=== PATIENT | female | born 1945 | race Caucasian/White ===

== ENCOUNTER → 2019-03-24 12:45 | Outpatient (CLI) | payer MEDICARE, SELFPAY ==
--- NOTE | 2019-03-24 12:51 | XR_ITS ---
PROCEDURE: XR SHOULDER RT MIN 2V CLINICAL INDICATION: proximal humerus fracture fu Follow-up proximal humeral fracture COMPARISON: XR SHOULDER RT MIN 2V from 03/02/2019 FINDINGS: There are severe osteoarthritic changes of the glenohumeral joint. There is a healing humeral neck fracture. Fracture line is somewhat less apparent with overlying callus formation. There is severe subacromial stenosis consistent with rotator cuff tear and severe osteoarthritic change of the glenohumeral joint with dysplastic changes of the humeral head. IMPRESSION: Severe osteoarthritis of the glenohumeral joint with healing humeral neck fracture and severe subacromial stenosis Dictated by: Migue Aguilar MD 03/24/2019 17:55 Electronically signed by Migue Aguilar MD in [place] 03/24/2019 17:55
== END ==
PROVIDERS: PCP Pediatrics; Visit Provider Orthopaedic Surgery
DX: S42.201A Unspecified fracture of upper end of right humerus, initial encounter for closed fracture (principal)
CPT/HCPCS: 73030

== ENCOUNTER → 2019-04-14 12:55 | Outpatient (CLI) | payer MEDICARE, SELFPAY ==
--- NOTE | 2019-04-14 13:01 | XR_ITS ---
PROCEDURE: XR SHOULDER RT MIN 2V CLINICAL INDICATION: right proximal humerus fracture follow up Follow-up fracture COMPARISON: XR SHOULDER RT MIN 2V from 03/02/2019 XR SHOULDER RT MIN 2V from 03/24/2019 FINDINGS: Severe osteoarthritic change of the glenohumeral joint with severe subacromial stenosis with healing humeral neck fracture with mild impaction of the fracture fragments. The greater tuberosity fracture appears to be healing. Dysplastic changes are present involving the humeral head with ridging of the humeral neck medially and at the glenoid area. IMPRESSION: Healing humeral neck fracture with severe osteoarthritic change Dictated by: Migue Aguilar MD 04/14/2019 16:09 Electronically signed by Migue Aguilar MD in [place] 04/14/2019 16:09
== END ==
PROVIDERS: PCP Pediatrics; Visit Provider Orthopaedic Surgery
DX: S42.201A Unspecified fracture of upper end of right humerus, initial encounter for closed fracture (principal)
CPT/HCPCS: 73030

== ENCOUNTER → 2019-06-15 13:17 | Outpatient (CLI) | payer MEDICARE, SELFPAY ==
--- NOTE | 2019-06-15 13:24 | XR_ITS ---
PROCEDURE: XR SHOULDER RT MIN 2V CLINICAL INDICATION: right proximal humerus fracture fu Follow-up fracture COMPARISON: XR SHOULDER RT MIN 2V from 03/02/2019 XR SHOULDER RT MIN 2V from 03/24/2019 XR SHOULDER RT MIN 2V from 04/14/2019 FINDINGS: Displaced humeral neck fracture once again noted. There is anterior displacement of the distal fracture fragment. The fracture line appears somewhat less apparent suggesting healing. There are severe osteoarthritic changes of the glenohumeral joint with severe subacromial stenosis. IMPRESSION: Healing displaced humeral neck fracture with severe osteoarthritic change Dictated by: Migue Aguilar MD 06/15/2019 14:53 Electronically signed by Migue Aguilar MD in [place] 06/15/2019 14:53
== END ==
PROVIDERS: PCP Pediatrics; Visit Provider Orthopaedic Surgery
DX: S42.201A Unspecified fracture of upper end of right humerus, initial encounter for closed fracture (principal)
CPT/HCPCS: 73030

== ENCOUNTER → 2021-03-22 13:20 | Outpatient (CLI) | payer MEDICARE, SELFPAY | PROVIDERS: Visit Provider Internal Medicine Gastroenterology | DX: Z20.822 Contact with and (suspected) exposure to COVID-19 (principal) | CPT/HCPCS: C9803; U0003; U0005 ==

== ENCOUNTER → 2022-04-24 12:30 | Outpatient (CLI) | payer MEDICARE, SELFPAY ==
--- NOTE | 2022-04-24 13:05 | ECG_ITS ---
APPROVED REPORT Exam: Resting ECG HR:77 bpm ECG Measurements Heart Rate 77 AXES NJ 130 P 36 QRSd 97 QRS -31 QT 396 T 51 QTc 428 Conclusion SINUS RHYTHM LEFT AXIS DEVIATION [QRS AXIS < -30] SEPTAL MYOCARDIAL INFARCTION , PROBABLY OLD [40+ ms Q WAVE IN V1/V2] ABNORMAL ECG UNCONFIRMED REPORT Electronically signed by : Rohit Gruber MD 04/25/2022 20:20:59
[2022-04-24 13:29] LABS: Basophils # 0.1 K/mm3 (0-0.2); Basophils % 0.8 % (0.1-2.0); Eosinophils # 0.2 K/mm3 (0.0-0.4); Eosinophils % 1.5 % (0.1-12.0); Hematocrit 36.1 % (37.0-47.0); Hemoglobin 11.6 g/dL (12.2-16.2); Lymphocytes # 3.3 K/mm3 (0.7-4.5); Lymphocytes % 30.4 % (10-50); Mean Corpuscular Hemoglobin 30.5 pg (27.0-31.2); Mean Corpuscular Volume 95.1 fl (81-99); Mean Platelet Volume 8.2 fl (7.4-10.4); Monocytes # 0.6 K/mm3 (0.1-1.0); Monocytes % 5.8 % (1.7-9.3); Neutrophils # 6.6 K/mm3 (1.8-7.8); Neutrophils % 61.5 % (37.0-80.0); Platelet Count 484 K/mm3 (142-424); Red Blood Count 3.79 M/mm3 (4.20-5.40); Red Cell Distribution Width 14.4 % (11.5-17.5); White Blood Count 10.7 K/mm3 (4.8-10.8)
== END ==
PROVIDERS: PCP Pediatrics
DX: Z01.818 Encounter for other preprocedural examination (principal); T84.84XA Pain due to internal orthopedic prosthetic devices, implants and grafts, initial encounter
CPT/HCPCS: 36415; 85025; 93005

== ENCOUNTER 2022-09-10 06:53 | Day surgery (SDC) | payer MEDICARE, SELFPAY ==
[2022-09-04 16:28] VITALS: BMI 23.6
[2022-09-10] VITALS (7 sets, daily range): BP systolic 119–139; BP diastolic 56–73; PULSE 60–76; RESP 16–18; TEMP 36.3–36.4; O2SAT 97–100
== END 2022-09-10 08:56 | disposition home or self-care (01) ==
PROVIDERS: PCP Pediatrics; Visit Provider Ophthalmology
DX: H25.813 Combined forms of age-related cataract, bilateral (principal)
CPT/HCPCS: 66984; V2632

== ENCOUNTER 2022-09-24 08:22 | Day surgery (SDC) | payer MEDICARE, SELFPAY ==
[2022-09-24] VITALS (7 sets, daily range): BP systolic 102–132; BP diastolic 53–63; PULSE 62–69; RESP 16–18; TEMP 36.2–36.4; O2SAT 94–100; BMI 22.1
== END 2022-09-24 10:21 | disposition home or self-care (01) ==
PROVIDERS: PCP Pediatrics; Visit Provider Ophthalmology
DX: H26.9 Unspecified cataract (principal)
CPT/HCPCS: 66984; V2632

== ENCOUNTER 2022-11-03 00:25 | Emergency (ER) | payer MEDICARE, SELFPAY ==
[2022-11-03 00:16] VITALS: BMI 32.3
--- NOTE | 2022-11-03 00:16 | CT_ITS ---
PROCEDURE INFORMATION: Exam: CT Head Without Contrast Exam date and time: 11/03/2022 12:24 AM Age: 77 years old Clinical indication: Stroke-like symptoms; Speech disturbance; Left facial droop; Lt upper extremity and lt lower extremity weakness; Additional info: Stroke rule out TECHNIQUE: Imaging protocol: Computed tomography of the head without contrast. Radiation optimization: All CT scans at this facility use at least one of these dose optimization techniques: automated exposure control; mA and/or kV adjustment per patient size (includes targeted exams where dose is matched to clinical indication); or iterative reconstruction. Other technique: STROKE PROTOCOL was implemented. REPORTING DATA: Count of CT and Cardiac NM exams in prior 12 months: This patient has received 0 known CTs and 0 known cardiac nuclear medicine studies in the 12 months prior to the current study. COMPARISON: No relevant prior studies available. FINDINGS: Brain: Loss of alcocer-white matter differentiation involving the left occipital lobe. The remaining alcocer-white matter junction is intact. There is no area of hemorrhage. There is no focal mass. Cerebral ventricles: No ventriculomegaly. Paranasal sinuses: Visualized sinuses are unremarkable. No fluid levels. Mastoid air cells: Visualized mastoid air cells are well aerated. Bones/joints: Unremarkable. No acute fracture. Soft tissues: Unremarkable. IMPRESSION: 1. Loss of alcocer-white matter differentiation involving the left occipital lobe. 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 2. The remainder of the examination is unremarkable. There is no other areas suspicious for an acute infarction. There is no hemorrhage or mass. ASSESSMENT: ASPECTS ([place] Stroke Program Early CT Score) is ten.
--- NOTE | 2022-11-03 00:24 | PC.NURSE ---
pt in CT
--- NOTE | 2022-11-03 00:26 | PC.NURSE ---
FSBS 98 MG/DL.
--- NOTE | 2022-11-03 00:36 | PC.NURSE ---
CONSTANCE speaking with DR. Palacios about CT results
[2022-11-03 00:42] VITALS: BP 169/77; PULSE 75; RESP 25; TEMP 36.8; O2SAT 96; BMI 19.9
--- NOTE | 2022-11-03 00:43 | PC.NURSE ---
speaking with [facility] Stroke intake team at this time.
--- NOTE | 2022-11-03 00:45 | PC.NURSE ---
MD CONFIRMED WITH NURSE NAVIGATOR ORDER FOR TNK MULTIPLE TIMES. ADVISED NURSE NAVIGATOR VIA MD OF CONCENTRATION OF MEDICATION AND SHE CONTINUED TO ADVISE THAT THIS WAS THE CHOSEN MEDICATION FOR THIS SITUATION. CALL PLACED OUT TO PHARMACY ON-CALL FOR CONFIRMATION OF DOSING PER WEIGHT. WAITING RETURN CALL.
[2022-11-03 01:00] VITALS: BP 175/75; PULSE 73; RESP 16; O2SAT 99
--- NOTE | 2022-11-03 01:00 | PC.NURSE ---
Rosie Rn spoke with [facility] and they are on their way.
--- NOTE | 2022-11-03 01:04 | PC.NURSE ---
FABIAN GARY RN SPEAKING WITH [facility]OL[facility] RE: DOSING FOR MEDICATION AT THIS TIME.
--- NOTE | 2022-11-03 01:05 | HMH.EDNEU ---
Discharge Plan Disposition Patient Disposition: Xfer Short-Term Hosp Chief Complaint: Neuro Symptoms/Deficit Prescriptions Prescriptions: No Action folic acid 1 mg tablet 1 mg PO DAILY hydrocodone-acetaminophen 7.5-325 mg Tablet 1 tab PO Q6H PRN (Reason: Pain) aspirin 81 mg Tablet 81 mg PO BID sulfamethoxazole-trimethoprim [Bactrim] 400-80 mg Tablet 1 tab PO DAILY Referrals Follow up/Referrals: Provider,Referral, MD [Primary Care Provider] - See instructions Clinical Impressions Clinical Impression: Cerebrovascular accident Discharge ED Provider: Philip (ED)Rigo Neuro HPI General Chief Complaint: Neuro Symptoms/Deficit Stated Complaint: STROKE ALERT Time Seen by Provider: 11/03/22 00:25 Mode of Arrival: EMS Source of Information: Patient, EMS and Medical Record Limitations: No Limitations Description of Symptoms (Recalled from ER Triage Doc. by RN): pt arrived via EMS. pt states she was watching tv and suddenly had a headache, noticed slurring in her speach and drooping the L side of her face and weakness in the L side of her body. when EMS arrived her initial FS was 139, upon arrival here is was 98. pts story aligns with EMS. pt NIH score is 4. pt has some L sided droop, slight drift on the L side, and minimal slurring of her words. pt states she feels like she is doing better then when she initially called. pt is A&O x4 History of Present Illness HPI Narrative: sudden onset of slurred speech and facial changes - weakness lt upper ext - 2320 last nl - no prev cva - has hx of recurrent dvt and was on xarelto till about 9 months ago - had hip surg in july and cataract surg september- hx of rheumatoid arthritis Onset (ago): hour(s) Time: 23:20 Date last observed normal: 11/02/22 Time last observed normal: 23:20 Timing confirmed by: family member Location: speech, left face and left arm History of same: No Severity: moderate Quality: weak and improving Context: sudden onset On Anticoagulants: No Associated symptoms: denies other symptoms Treatments Prior to Arrival: none Related Data Home Medications Medication Instructions Recorded Confirmed folic acid 1 mg tablet 1 mg PO DAILY Supplement 03/09/19 09/04/22 aspirin 81 mg tablet 81 mg PO BID CAD 09/04/22 09/04/22 hydrocodone 7.5 mg-acetaminophen 1 tab PO Q6H PRN Pain 09/04/22 09/04/22 325 mg tablet sulfamethoxazole 400 1 tab PO DAILY Infection 09/10/22 09/10/22 mg-trimethoprim 80 mg tablet (Bactrim) Allergies Allergy/AdvReac Type Severity Reaction Status Date / Time doxycycline Allergy Verified 09/10/22 07:20 Stroke Alert/NIH Score LOC Stroke Alert: Yes Stroke Alert date: 11/03/22 Stroke Alert time of activation: 23:20 Level of Consciousness: Alert LOC Questions: Answers both correctly LOC Commands: Obeys both correctly Facial/Visual Best Gaze: Normal Visual: No visual loss Facial Palsy: Partial Motor Motor Response, Left Arm: Can't resist gravity Motor Response, Right Arm: No drift/Amputation/Fused Motor Response, Left Leg: No drift/Amputation/Fused Motor Response, Right Leg: No drift/Amputation/Fused Sensory/Language Limb Ataxia: Absent Sensory: Normal Best Language: No aphasia Dysarthria: Mild to moderate dysarthria NIH Score Stroke Risk Score: 5 PFSH PFS Disclaimer: The information contained in this section may have been updated after the patient was seen, as this information can be updated by other users. Medical History (Updated 11/03/22 @ 01:17 by Rigo Palacios MD (ED)) History of CAD (coronary artery disease) History of hip fracture History of [place] (myocardial infarction) Surgical History History of hip surgery Family History Other No significant family history Social History Smoking Status: Never smoker alcohol int
[2022-11-03 01:07] LABS: Anion Gap 14.7 mEq/L (5-15); Blood Urea Nitrogen 24 mg/dl (7-17); Calcium 8.8 mg/dl (8.4-10.2); Carbon Dioxide 22 mmol/L (22.0-30.0); Chloride 108 mmol/L (98-107); Creatinine Clearance Estimated 40 mL/min (50-200); Estimated Glomerular Filt Rate 54 ml/min (>60); GFR (African American) 65 ML/MIN (>60); Glucose 94 mg/dl (74-100); Potassium 4.7 mmoL/L (3.5-5.1); Sodium 140 mmol/L (136-145); Troponin I < 0.01 ng/ml (0.00-0.034)
--- NOTE | 2022-11-03 01:08 | ECG_ITS ---
APPROVED REPORT Exam: Resting ECG HR:69 bpm ECG Measurements Heart Rate 69 AXES VA 130 P 52 QRSd 100 QRS -19 QT 411 T 68 QTc 430 Conclusion SINUS RHYTHM SEPTAL MYOCARDIAL INFARCTION , OF INDETERMINATE AGE [40+ ms Q WAVE IN V1/V2] ABNORMAL ECG UNCONFIRMED REPORT Electronically signed by : Rohit Gruber MD 11/04/2022 08:17:50
[2022-11-03 01:14] LABS: Alanine Aminotransferase 16 U/L (12-78); Albumin Level 3.8 g/dl (3.5-5.0); Alkaline Phosphatase 86 U/L (38-126); Aspartate Amino Transferase 35 U/L (14-36); Bilirubin,Direct 0.1 mg/dl (0.0-0.4); Bilirubin,Indirect 0.1 mg/dL (0.0-0.9); Bilirubin,Total 0.2 mg/dl (0.2-1.3); Bilirubin,Unconjugated 0.1 mg/dL (0.0-1.1); Total Protein,Serum 7.5 g/dl (6.3-8.2)
[2022-11-03 01:15] LABS: INR 0.95 (0.9-1.1); Prothrombin Time 10.3 seconds (10.1-12.5)
[2022-11-03 01:39] VITALS: BP 174/81; PULSE 83; RESP 19; TEMP 36.7
[2022-11-03 01:49] LABS: Hematocrit 25.3 % (37.0-47.0); Hemoglobin 7.9 g/dL (12.2-16.2); Mean Corpuscular HGB Conc 31.2 g/dL (31.8-35.4); Mean Corpuscular Hemoglobin 28.3 pg (27.0-31.2); Mean Corpuscular Volume 90.7 fl (81-99); Red Blood Count 2.79 M/mm3 (4.20-5.40); Red Cell Distribution Width 16.7 % (11.5-17.5); White Blood Count 8.8 K/mm3 (4.8-10.8)
[2022-11-03 01:50] LABS: Basophils % 0.3 % (0.1-2.0); Eosinophils # 0.2 K/mm3 (0.0-0.4); Eosinophils % 2.2 % (0.1-12.0); Lymphocytes % 34.4 % (10-50); Mean Platelet Volume 8.9 fl (7.4-10.4); Monocytes # 0.6 K/mm3 (0.1-1.0); Monocytes % 6.3 % (1.7-9.3); Neutrophils # 4.8 K/mm3 (1.8-7.8); Neutrophils % 54.2 % (37.0-80.0); Platelet Count 499 K/mm3 (142-424)
== END 2022-11-03 01:40 | disposition short-term general hospital (02) ==
PROVIDERS: Emergency Provider Emergency Medicine
DX: I63.9 Cerebral infarction, unspecified (principal); I25.10 Atherosclerotic heart disease of native coronary artery without angina pectoris; I25.2 Old myocardial infarction
CPT/HCPCS: 70450; 80048; 80076; 84484; 85025; 85610; 93005; 93041; 96374; 99291; J3101

== ENCOUNTER 2023-12-31 17:41 | Emergency (ER) | payer MEDICARE, SELFPAY ==
[2023-12-31 17:45] VITALS: BP 149/73; PULSE 82; RESP 16; TEMP 36.6; O2SAT 97; BMI 22.2
--- NOTE | 2023-12-31 17:45 | PC.NURSE ---
PT PLACED IN C-COLLAR
--- NOTE | 2023-12-31 17:48 | PC.NURSE ---
pt did not arrive in c collar. c collar placed upon pt arrival to ED
--- NOTE | 2023-12-31 17:52 | XR_ITS ---
PROCEDURE INFORMATION: Exam: XR Left Hip Exam date and time: 12/31/2023 6:23 PM Age: 78 years old Clinical indication: Injury or trauma; Fall; Blunt trauma (contusions or hematomas); Left; Hip; Additional info: Fall, L hip pain greater troch TECHNIQUE: Imaging protocol: Radiologic exam of the left hip. Views: 2 or 3 views hip with pelvis when performed. COMPARISON: CT BONY PELVIS 12/31/2023 6:23 PM FINDINGS: Bones/joints: Moderately comminuted fracture of the left superior pubic ramus. Cortical irregularity involving the left inferior pubic ramus is obscured by metal artifact on CT compatible with nondisplaced fracture. Bilateral hip arthroplasty hardware without perihardware lucencies. Soft tissues: Unremarkable. IMPRESSION: 1. Moderately comminuted fracture of the left superior pubic ramus. 2. Cortical irregularity involving the left inferior pubic ramus is obscured by metal artifact on CT compatible with nondisplaced fracture.
--- NOTE | 2023-12-31 17:52 | XR_ITS ---
PROCEDURE INFORMATION: Exam: XR Left Femur Exam date and time: 12/31/2023 6:23 PM Age: 78 years old Clinical indication: Injury or trauma; Fall; Blunt trauma; Thigh or upper leg; Left; Additional info: Fall, L hip pain greater troch TECHNIQUE: Imaging protocol: Radiologic exam of the left femur. Views: 2 views. COMPARISON: CR XR FEMUR LT 2V 12/31/2023 6:23 PM FINDINGS: Bones/joints: Postsurgical changes compatible with left knee arthroplasty without perihardware lucencies or migration. Hip arthroplasty stone without perihardware lucencies or migration. No evidence of acute osseous abnormality. Soft tissues: Unremarkable. IMPRESSION: No evidence of acute osseous abnormality of the visualized left femur.
--- NOTE | 2023-12-31 17:52 | CT_ITS ---
PROCEDURE INFORMATION: Exam: CT Pelvis Without Contrast, Skeleton Exam date and time: 12/31/2023 6:23 PM Age: 78 years old Clinical indication: Injury or trauma; Fall; Additional info: Fall, L hip injury, can't ambulate. Lateral pain TECHNIQUE: Imaging protocol: Computed tomography of the pelvis without contrast. Exam focused on the skeleton. Radiation optimization: All CT scans at this facility use at least one of these dose optimization techniques: automated exposure control; mA and/or kV adjustment per patient size (includes targeted exams where dose is matched to clinical indication); or iterative reconstruction. COMPARISON: No relevant prior studies available. FINDINGS: Bones/joints: Moderately comminuted fracture of the left superior pubic ramus adjacent to the pubic symphysis. Soft tissues: Unremarkable. IMPRESSION: 1. Moderately comminuted fracture of the left superior pubic ramus adjacent to the pubic symphysis. 2. Severe metal artifact from hip arthroplasties limits evaluation, especially around femoroacetabular joints.
--- NOTE | 2023-12-31 17:52 | CT_ITS ---
PROCEDURE INFORMATION: Exam: CT Cervical Spine Without Contrast Exam date and time: 12/31/2023 6:18 PM Age: 78 years old Clinical indication: Injury or trauma; Additional info: Fall, hit left side of gnosticism, loc, history of ra TECHNIQUE: Imaging protocol: Computed tomography of the cervical spine without contrast. Total images: 251 Radiation optimization: All CT scans at this facility use at least one of these dose optimization techniques: automated exposure control; mA and/or kV adjustment per patient size (includes targeted exams where dose is matched to clinical indication); or iterative reconstruction. COMPARISON: No prior studies available for comparison. FINDINGS: Bones: The cervical spine demonstrates mild degenerative changes at multiple levels. No evidence of acute fracture. Disc space narrowing and bilateral neural foraminal narrowing noted C5-C6 and C6-C7. Prevertebral and retropharyngeal spaces: Prevertebral soft tissues are within normal limits. Lungs: Lung apices are normal. Soft tissues: Unremarkable. IMPRESSION: 1. The cervical spine demonstrates mild degenerative changes at multiple levels. 2. No evidence of acute fracture. 3. Prevertebral soft tissues are within normal limits.
--- NOTE | 2023-12-31 17:52 | XR_ITS ---
PROCEDURE INFORMATION: Exam: XR Left Shoulder Exam date and time: 12/31/2023 6:23 PM Age: 78 years old Clinical indication: Injury or trauma; Fall; Blunt trauma (contusions or hematomas); Shoulder; Left; Additional info: Fall, L shoulder pain TECHNIQUE: Imaging protocol: Radiologic exam of the left shoulder. Views: 2 or more views. COMPARISON: CR XR SHOULDER LT MIN 2V 12/31/2023 6:23 PM FINDINGS: Bones/joints: Large marginal osteophytes and significant degenerative changes involving the left glenohumeral joint. No evidence of acute osseous abnormality. Soft tissues: Normal. IMPRESSION: 1. Large marginal osteophytes and significant degenerative changes involving the left glenohumeral joint. 2. No evidence of acute osseous abnormality.
--- NOTE | 2023-12-31 17:52 | CT_ITS ---
PROCEDURE INFORMATION: Exam: CT Head Without Contrast Exam date and time: 12/31/2023 6:15 PM Age: 78 years old Clinical indication: Injury or trauma; Fall; Additional info: Fall, hit left side of zoroastrianism, loc TECHNIQUE: Imaging protocol: Computed tomography of the head without contrast. Total images: 264 Radiation optimization: All CT scans at this facility use at least one of these dose optimization techniques: automated exposure control; mA and/or kV adjustment per patient size (includes targeted exams where dose is matched to clinical indication); or iterative reconstruction. COMPARISON: CT HEAD/BRAIN WO CON 11/03/2022 12:24 AM FINDINGS: Brain: Age-related atrophy and chronic white matter ischemic changes, with no evidence of an acute intracranial abnormality. No hemorrhage, mass effect or midline shift. Encephalomalacia changes left occipital lobe. Old lacunar infarction right basal ganglia. Cerebral ventricles: No ventriculomegaly. Paranasal sinuses: Visualized sinuses are unremarkable. No fluid levels. Mastoid air cells: Visualized mastoid air cells are well aerated. Bones: Unremarkable. No acute fracture. Soft tissues: Soft tissue hematoma left parietal region. IMPRESSION: 1. Age-related atrophy and chronic white matter ischemic changes, with no evidence of an acute intracranial abnormality. 2. No hemorrhage, mass effect or midline shift. 3. Soft tissue hematoma left parietal region.
[2023-12-31 18:00] VITALS: BP 126/67; PULSE 78; O2SAT 95
--- NOTE | 2023-12-31 18:07 | PC.NURSE ---
Pt out of room with Rad for CT
--- NOTE | 2023-12-31 18:07 | PC.NURSE ---
PT TO CT
--- NOTE | 2023-12-31 18:13 | HMH.EDGENADL ---
Discharge Plan Disposition Patient Disposition: Xfer Short-Term Hosp Chief Complaint: Fall Prescriptions Prescriptions: No Action folic acid 1 mg tablet 1 mg PO DAILY hydrocodone-acetaminophen 7.5-325 mg Tablet 1 tab PO Q6H PRN (Reason: Pain) aspirin 81 mg Tablet 81 mg PO BID sulfamethoxazole-trimethoprim [Bactrim] 400-80 mg Tablet 1 tab PO DAILY Referrals Follow up/Referrals: Ahsan Sy [Primary Care Provider] - See instructions Clinical Impressions Clinical Impression: Multiple closed fractures of pelvis without disruption of pelvic ring Print Language Print Language: [place] Discharge ED Provider: Sarabjit Hein General Adult HPI General Chief complaint: Fall Stated complaint: Fall Time Seen by Provider: 12/31/23 17:44 Mode of Arrival: EMS Source of Information: Patient Limitations: No Limitations Description of Symptoms (Recalled from ER Triage Doc. by RN): pt presents to Ed via [facility] for fall. pt reports that she tripped coming into her house over the rubber strip on the bottom of the door. pt reports left hip pain and head pain. no LOC, no blood thinners. History of Present Illness HPI narrative: Please note that above description of symptoms, in this electronic medical record under categorization of recalled from ER triage doctor by RN are reflective of an initial nursing assessment, however, is not reflective of my full history and physical exam that was personally taken and clarified. Consequentially, this preceding description of symptoms, which may include the patient's categorized chief complaint in the EMR, do not reflect my personal clinical impression, and the ultimate description of history of present illness and patient stated complaints should be deferred to this section of the note. Unless stated otherwise or congruent with this section of the note, additional signs, symptoms, or incongruence should be interpreted as inaccurate with my clinical impression. Related Data Home Medications ?Medication ?Instructions ?Recorded ?Confirmed folic acid 1 mg tablet 1 mg PO DAILY Supplement 03/09/19 09/04/22 aspirin 81 mg tablet 81 mg PO BID CAD 09/04/22 09/04/22 hydrocodone 7.5 mg-acetaminophen 1 tab PO Q6H PRN Pain 09/04/22 09/04/22 325 mg tablet sulfamethoxazole 400 1 tab PO DAILY Infection 09/10/22 09/10/22 mg-trimethoprim 80 mg tablet (Bactrim) Allergies Allergy/AdvReac Type Severity Reaction Status Date / Time doxycycline Allergy Verified 09/10/22:20 [facility] Disclaimer: The information contained in this section may have been updated after the patient was seen, as this information can be updated by other users. Medical History (Updated 12/31/23 @ 19:45 by Sarabjit Hein MD) History of hip fracture History of CAD (coronary artery disease) History of [place] (myocardial infarction) Surgical History History of hip surgery Family History Other No significant family history Social History Smoking Status: Never smoker alcohol intake: never current occupational status: other Travel in the last 8 weeks: None ROS Obtained: Yes All systems reviewed & no additional complaints except as documented Physical Exam General General appearance: alert Head Head exam: normocephalic and other (4 cm scalp hematoma left posterior lateral scalp. No basilar or depressed skull fracture) Eye Eye exam: Present normal appearance, PERRL and EOMI ENT ENT exam: Present TM's normal bilaterally Neck Neck exam: Present normal inspection, full ROM and trachea midline Respiratory Respiratory exam: Absent respiratory distress, wheezes, stridor, accessory muscle use or prolonged expiratory phase Cardiovascular Cardiovascular exam: Present regular rate, normal rhythm and other (Puls
--- NOTE | 2023-12-31 18:16 | XR_ITS ---
PROCEDURE INFORMATION: Exam: XR Right Forearm Exam date and time: 12/31/2023 6:23 PM Age: 78 years old Clinical indication: Injury or trauma; Fall; Blunt trauma (contusions or hematomas); Arm, lower; Right; Additional info: Fall, R forearm pain TECHNIQUE: Imaging protocol: Radiologic exam of the right forearm. Views: 2 views. COMPARISON: CR XR WRIST RT MIN 3V 12/31/2023 6:23 PM FINDINGS: Bones/joints: Moderate osteophytosis and degenerative changes involve the proximal carpal row of the right wrist. No evidence of acute osseous abnormality. Soft tissues: Normal. IMPRESSION: No evidence of acute osseous abnormality.
--- NOTE | 2023-12-31 18:16 | CT_ITS ---
PROCEDURE INFORMATION: Exam: CT Abdomen And Pelvis Without Contrast Exam date and time: 12/31/2023 6:26 PM Age: 78 years old Clinical indication: Injury or trauma; Additional info: Fall, L abdominal wall and chest wall pain TECHNIQUE: Imaging protocol: Computed tomography of the abdomen and pelvis without contrast. Radiation optimization: All CT scans at this facility use at least one of these dose optimization techniques: automated exposure control; mA and/or kV adjustment per patient size (includes targeted exams where dose is matched to clinical indication); or iterative reconstruction. COMPARISON: CT BONY PELVIS 12/31/2023 6:23 PM FINDINGS: Liver: Normal. No mass. Gallbladder and biliary ducts: There are surgical clips within the gallbladder fossa. Pancreas: Normal. No ductal dilation. Spleen: Normal. No splenomegaly. Adrenal glands: Normal. No mass. Kidneys and ureters: Left renal Bosniak 1 cystic lesion that is homogeneous and fluid density (-9-20 HU), no septations or calcifications, having hollis smooth and thin. Measurement is 31 mm. No follow-up recommended. Stomach and bowel: Diverticula are scattered throughout the colon without inflammatory changes. Appendix: The appendix is not definitely identified, but there are no primary or secondary CT findings to suggest a diagnosis of acute appendicitis. Intraperitoneal space: Unremarkable. No free air. No significant fluid collection. Vasculature: Unremarkable. No abdominal aortic aneurysm. Lymph nodes: Unremarkable. No enlarged lymph nodes. Urinary bladder: Unremarkable as visualized. Reproductive: Unremarkable as visualized. Bones/joints: Bilateral hip arthroplasty with metal artifact that obscures evaluation of the lower pelvis. Moderately comminuted fracture of the left superior pubic ramus adjacent to the pubic symphysis. Soft tissues: Normal. IMPRESSION: Moderately comminuted fracture of the left superior pubic ramus adjacent to the pubic symphysis. COMMENTS: Consistent with the [employer]'s Incidental Findings Committee white paper (J Am Mary Radiol 2018): Any incidental renal lesion less than 1 cm or classified as too small to characterize, or any incidental cystic renal lesion characterized as simple-appearing, is likely benign. No follow-up imaging is recommended for these lesions per consensus recommendations based on imaging criteria.
--- NOTE | 2023-12-31 18:16 | CT_ITS ---
PROCEDURE INFORMATION: Exam: CT Chest Without Contrast; Diagnostic Exam date and time: 12/31/2023 6:26 PM Age: 78 years old Clinical indication: Injury or trauma; Fall; Additional info: Fall, L chest wall pain TECHNIQUE: Imaging protocol: Diagnostic computed tomography of the chest without contrast. Radiation optimization: All CT scans at this facility use at least one of these dose optimization techniques: automated exposure control; mA and/or kV adjustment per patient size (includes targeted exams where dose is matched to clinical indication); or iterative reconstruction. COMPARISON: CT ABDOMEN PELVIS WO CON 12/31/2023 6:26 PM FINDINGS: Lungs: Right lower lobe superior segment 4 0.9 mm nodule, axial image 41. Pleural spaces: Unremarkable. No pneumothorax. No pleural effusion. Heart: Unremarkable. No cardiomegaly. No pericardial effusion. Coronary arteries: Moderate calcific atherosclerotic disease of the LAD is present. Lymph nodes: Unremarkable. No enlarged lymph nodes. Vasculature: There is mild calcific atherosclerotic disease of the thoracic aorta without aneurysmal dilatation. Bones/joints: Bilateral severe degenerative changes of the glenohumeral joints. No evidence of acute osseous abnormality. Soft tissues: Unremarkable. IMPRESSION: 1. Solitary sub-6mm pulmonary nodule as described above. For patients at low risk (minimal or absent history of smoking and of other known risk factors), no routine follow-up is indicated. For patients at high risk (history of smoking or of other known risk factors), consider optional CT Chest at 12 months. (Reference: [place]) 2. No evidence of acute osseous abnormality. REFERENCES: [place] Pena, et al. Guidelines for Management of Incidental Pulmonary Nodules Detected on CT Images: From the Fleischner Society 2017. Radiology. 2017;284(1):228-243.
--- NOTE | 2023-12-31 18:16 | XR_ITS ---
PROCEDURE INFORMATION: Exam: XR Right Wrist Exam date and time: 12/31/2023 6:23 PM Age: 78 years old Clinical indication: Injury or trauma; Fall; Blunt trauma (contusions or hematomas); Wrist; Right; Additional info: Rall, right wrist pain TECHNIQUE: Imaging protocol: Radiologic exam of the right wrist. Views: 3 or more views. COMPARISON: CR XR WRIST RT MIN 3V 12/31/2023 6:23 PM FINDINGS: Bones/joints: Moderate osteophytosis and degenerative changes involve the proximal carpal row of the right breast. No evidence of acute osseous abnormality. Soft tissues: See Bones/joints finding. IMPRESSION: 1. Moderate osteophytosis and degenerative changes involve the proximal carpal row of the right breast. 2. No evidence of acute osseous abnormality.
--- NOTE | 2023-12-31 18:45 | PC.NURSE ---
pt back in room from CT
--- NOTE | 2023-12-31 19:40 | PC.NURSE ---
Contacted [facility] in regards will calvillo
--- NOTE | 2023-12-31 19:41 | PC.NURSE ---
Contacted [facility] in regards to transfer for this patient.
--- NOTE | 2023-12-31 20:02 | PC.NURSE ---
gave report to [facility] Mao for transferring patient
[2023-12-31 22:00] VITALS: BP 123/90; PULSE 86; RESP 20; O2SAT 97
--- NOTE | 2023-12-31 22:46 | PC.NURSE ---
Pt. resting vital signs stable. awaiting [facility] crew to transfer pt. to .
--- NOTE | 2024-01-01 00:39 | PC.NURSE ---
EMS here to transport patient to .
[2024-01-01 01:21] VITALS: BP 141/66; PULSE 79; RESP 20; TEMP 37; O2SAT 97
== END 2024-01-01 01:15 | disposition short-term general hospital (02) ==
PROVIDERS: Emergency Provider Emergency Medicine; PCP Pediatrics
DX: S32.82XA Multiple fractures of pelvis without disruption of pelvic ring, initial encounter for closed fracture (principal); R51.9 Headache, unspecified; M25.552 Pain in left hip; W01.10XA Fall on same level from slipping, tripping and stumbling with subsequent striking against unspecified object, initial encounter
CPT/HCPCS: 70450; 71250; 72125; 72192; 73030; 73090; 73110; 73502; 73552; 74176; 99285